=== PATIENT | male | born 1960 | race Two or more races ===

== ENCOUNTER 2024-06-19 14:48 | Emergency (ER) | payer OTHER ==
[~2024-06-19] VITALS: Ht 170.2 cm; Wt 81.6 kg
[2024-06-19 16:25] VITALS: BP 144/83; O2SAT 97
[2024-06-19] MEDS ORDERED: CLINDAMYCIN PHOSPHATE 150 MG/ML (600mg) IM STA (17:30)
[2024-06-19] MEDS ORDERED: CEFTRIAXONE SODIUM 1,000 MG VIAL IM STA (17:31)
== END 2024-06-19 19:55 | disposition home or self-care (01) ==
LOC: ER 14:50
DX: N47.6 Balanoposthitis (principal)